=== PATIENT | male | born 1955 | race Hispanic/Latino ===

== ENCOUNTER 2019-04-04 20:09 | Emergency (ER) | payer OTHER ==
[~2019-04-04 20:09] MED LIST: AMLO5TAB9 PO; CETI10TA57 PO; ERGO500014 PO; FOLI1TAB61 PO; FURO40TA5 PO; GLIP5TAB11 PO; LOSA100T58 PO; METO-391 PO; OMEG-138 PO; SITA100T12 PO; SODI325T PO; auryxia PO; zinc PO
[2019-04-04 20:40] LABS: BASOPHILS % (AUTO) 0.3 % (0.0-5.0); EOSINOPHILS % (AUTO) 4.7 % (0.0-8.0); HEMATOCRIT 41.1 % (42-54); LYMPHOCYTES % (AUTO) 16.6 % (21.0-51.0); MEAN CORPUSCULAR HEMOGLOBIN 29.3 pg (27.0-33.0); MEAN CORPUSCULAR HGB CONC 33.3 g/dL (32.0-36.0); MEAN CORPUSCULAR VOLUME 88.1 fL (79-99); MONOCYTES % (AUTO) 8.2 % (3.0-13.0); NEUTROPHILS % (AUTO) 70.2 % (40.0-77.0); PLATELET COUNT (AUTO) 144 K/uL (130-400); RED BLOOD CELL COUNT(AUTO) 4.67 MIL/uL (4.50-6.20); RED CELL DISTRIBUTION WIDTH 15.8 % (11.0-15.5); WHITE BLOOD COUNT (AUTO) 6.3 K/uL (4.8-10.8)
[2019-04-04 20:51] LABS: CREATININE 4.3 mg/dL (0.5-1.5); POTASSIUM 3.7 mmol/L (3.5-5.1)
[2019-04-04 20:52] LABS: INR 1.01 (0.85-1.15); PARTIAL THROMBOPLASTIN TIME 26.6 SEC (26.3-35.5); PROTHROMBIN TIME 10.6 SEC (9.6-11.6)
[2019-04-04 20:59] LABS: ALBUMIN 3.8 g/dL (3.5-5.0); BILIRUBIN,TOTAL 0.6 mg/dL (0.2-1.0); TOTAL PROTEIN, SERUM 7.9 g/dL (6.0-8.3)
== END 2019-04-04 22:27 | disposition home or self-care (01) ==
LOC: EDH 20:09
DX: T82.838A Hemorrhage due to vascular prosthetic devices, implants and grafts, initial encounter (principal); I10 Essential (primary) hypertension; I12.0 Hypertensive chronic kidney disease with stage 5 chronic kidney disease or end stage renal disease; E11.22 Type 2 diabetes mellitus with diabetic chronic kidney disease; N18.6 End stage renal disease; Z88.0 Allergy status to penicillin; Y84.8 Other medical procedures as the cause of abnormal reaction of the patient, or of later complication, without mention of misadventure at the time of the procedure; Y92.89 Other specified places as the place of occurrence of the external cause
CPT/HCPCS: 36415; 80053; 85025; 85610; 85730

== ENCOUNTER 2020-03-20 07:12 | Day surgery (SDC) | payer OTHER ==
[2020-03-18 14:29] LABS: BASOPHILS % (AUTO) 0.7 % (0.0-5.0); EOSINOPHILS % (AUTO) 1.2 % (0.0-8.0); HEMATOCRIT 44.2 % (42-54); LYMPHOCYTES % (AUTO) 15.9 % (21.0-51.0); MEAN CORPUSCULAR HEMOGLOBIN 29.9 pg (27.0-33.0); MEAN CORPUSCULAR HGB CONC 32.6 g/dL (32.0-36.0); MEAN CORPUSCULAR VOLUME 91.9 fL (79-99); MONOCYTES % (AUTO) 7.9 % (3.0-13.0); NEUTROPHILS % (AUTO) 74.1 % (40.0-77.0); PLATELET COUNT (AUTO) 179 K/uL (130-400); RED BLOOD CELL COUNT(AUTO) 4.81 MIL/uL (4.50-6.20); RED CELL DISTRIBUTION WIDTH 13.5 % (11.0-15.5); WHITE BLOOD COUNT (AUTO) 8.6 K/uL (4.8-10.8)
[2020-03-18 14:32] LABS: APPEARANCE,URINE SL CLOUDY (CLEAR); BILIRUBIN,URINE SMALL (NEGATIVE); COLOR,URINE YELLOW (YELLOW); GLUCOSE, URINE (UA) NEGATIVE (NEGATIVE); KETONES,URINE 5 mg/dL (NEGATIVE); LEUKOCYTE ESTERASE ,URINE MODERATE (NEGATIVE); NITRATE,URINE NEGATIVE (NEGATIVE); OCCULT BLOOD,URINE LARGE (NEGATIVE); PROTEIN,URINE >=300 mg/dL (NEGATIVE); UROBILINOGEN,URINE 0.2 mg/dL (0.2-1.0)
[2020-03-18 14:38] LABS: PARTIAL THROMBOPLASTIN TIME 25.7 SEC (26.3-35.5); PROTHROMBIN TIME 10.8 SEC (9.6-11.6)
[2020-03-18 14:54] LABS: POTASSIUM 4.3 mmol/L (3.5-5.1)
[2020-03-18 15:19] LABS: WBC,URINE 26-50 /HPF (0-1)
[2020-03-18 15:20] LABS: CREATININE 9.1 mg/dL (0.5-1.5)
[2020-03-18 15:20] LABS: BACTERIA,URINE Few /HPF (None Seen); SQUAMOUS EPITHELIAL CELL,UR Rare /HPF (0-2)
[2020-03-19 16:29] VITALS: BP 122/59
--- NOTE | 2020-03-19 17:45 | NUR ---
reported urine result to Fabiola Michaels PROFESSIONAL MODEL, and bun 47, cathode washer 9.1, new order for Urine culture , called lab and need to collect new urine for urine culture.
--- NOTE | 2020-03-19 17:49 | NUR ---
Reported chest xray result to Fabiola Michaels BODY CLEANER , no new orders in regards to chest xray.
[~2020-03-20] VITALS: Ht 175.3 cm; Wt 97.5 kg
[2020-03-20] VITALS (7 sets, daily range): BP systolic 91–123; BP diastolic 58–72
[~2020-03-20 07:12] MED LIST changes: +ACET-2247 PO; -AMLO5TAB9 PO; +AROM1FL. PO; +CALC600T15 PO; -CETI10TA57 PO; -ERGO500014 PO; -FOLI1TAB61 PO; -FURO40TA5 PO; -LOSA100T58 PO; -OMEG-138 PO; +OMEG-184 PO; +RIVA15TA PO; -SITA100T12 PO; -SODI325T PO; +SODIUM CHLORIDE 0.9% 500ML 500 ML IV SCH; +l-theanine PO; +vitamin b6 PO; -zinc PO
[2020-03-20] MEDS ORDERED: SODIUM CHLORIDE 0.9% 1000ML 1,000 ML IV ONE (09:22)
[2020-03-20] MEDS ORDERED: METO50TA18 PO (09:27)
[2020-03-20] MEDS ORDERED: MIDAZOLAM HCL 1 MG/ML 2ML VIAL ONE (12:07)
[2020-03-20] MEDS ORDERED: IOHEXOL 350 MG/ML 100ML INFUS..BTL IV ONE (12:07)
[2020-03-20] MEDS ORDERED: NITROGLYCERIN 2 MG/VIAL VIAL IV ONE (12:07)
[2020-03-20] MEDS ORDERED: LIDOCAINE HCL 2% 20ML ONE (12:07)
[2020-03-20] MEDS ORDERED: IOHEXOL-350 50ML VIAL IV ONE (13:01)
[2020-03-20] MEDS ORDERED: GLUCAGON 1MG KIT 1 MG ML IM PRN (13:30)
[2020-03-20] MEDS ORDERED: SODIUM CHLORIDE 0.9% 10 ML VIAL IVP SCH (13:30)
[2020-03-20] MEDS ORDERED: DEXTROSE 50%-WATER 50 ML DISP.SYRIN IV PRN (13:30)
--- NOTE | 2020-03-20 14:30 | NUR ---
RECIEVED REPORT FROM FRANCY TORRES RN USING SBAR AT BEDSIDE. PATIENT AAOX3, RESPIRATIONS UNLABORED, VITAL SIGNS STABLE. DENIES ANY PAIN AT THIS TIME. DRESSING TO RIGHT GROIN DRY/INTACT. AREA SOFT/NONTENDER. PEDAL PULSES PRESENT BILATERALLY. PATIENT IN SUPINE POSITION.
[2020-03-20 14:34] LABS: CHOLESTEROL 89 mg/dL (<200); HDL CHOLESTEROL 69 mg/dL (29-71); LDL DIRECT 54 mg/dL (0-99); TRIGLYCERIDES 64 mg/dL (30-200)
[2020-03-20] MEDS ORDERED: INSULIN HUMULIN R 100 UNIT/ML 3ML SQ SCH (16:30)
--- NOTE | 2020-03-20 17:00 | NUR ---
DISCHARGE INSTRUCTIONS PROVIDED VIA TELEPHONE TO PATIENT'S SISTER (ALEXANDRA LEWIS). FOLLOW UP APPOINTMENT PROVIDED AND PRESCRIPTION PROVIDED WELL. INSTRUCTION TO RESUME [facility] TOMORROW LATE AFTERNOON. ALL QUESTIONS/CONCERNS ADDRESSED.
--- NOTE | 2020-03-20 17:20 | NUR ---
PATIENT DISCHARGED FROM FACILITY VIA WHEELCHAIR BY NURSE. PATIENT ASSISTED INTO PRIVATE VEHICLE DRIVEN BY FAMILY MEMBER.
== END 2020-03-20 17:20 | disposition home or self-care (01) ==
LOC: DAH 07:12
PROVIDERS: ATTEND Internal Medicine Cardiovascular Disease
DX: Z01.810 Encounter for preprocedural cardiovascular examination (principal); I25.10 Atherosclerotic heart disease of native coronary artery without angina pectoris; I48.21 Permanent atrial fibrillation; E11.22 Type 2 diabetes mellitus with diabetic chronic kidney disease; I12.0 Hypertensive chronic kidney disease with stage 5 chronic kidney disease or end stage renal disease; N18.6 End stage renal disease; E78.5 Hyperlipidemia, unspecified; Z94.0 Kidney transplant status; Z88.0 Allergy status to penicillin; Z79.01 Long term (current) use of anticoagulants; Z79.899 Other long term (current) drug therapy; Z98.890 Other specified postprocedural states
CPT/HCPCS: 36415 ×2; 71045; 75630; 80048; 80061; 81001; 82948 ×2; 85025; 85610; 85730; 87088 ×2; 93005; 93458; A4215; A4216; A4221; A4222; A4223 ×3; A4606; A4663; C1760; C1894; J1644; J2250; J3490 ×2; J7030; Q9965 ×2; Q9967; 36200; 99156; 99157

== ENCOUNTER → 2022-03-30 | Outpatient (CLI) | payer OTHER ==
[~2022-03-30] MED LIST changes: +CALC-1125 PO; -CALC600T15 PO; -METO-391 PO; +METO50TA18 PO; -SODIUM CHLORIDE 0.9% 500ML 500 ML IV SCH
== END | disposition home or self-care (01) ==
LOC: RAH 09:58
PROVIDERS: ATTEND Internal Medicine Critical Care Medicine
DX: K80.20 Calculus of gallbladder without cholecystitis without obstruction (principal); K74.60 Unspecified cirrhosis of liver
CPT/HCPCS: 76700

== ENCOUNTER → 2024-06-18 | Outpatient (CLI) | payer OTHER ==
[~2024-06-18] MED LIST changes: -GLIP5TAB11 PO; +GLIP5TAB15 PO
[2024-06-18 13:00] LABS: INR 2.16 (0.85-1.15); PROTHROMBIN TIME 22.4 SEC (9.6-11.6)
== END | disposition home or self-care (01) ==
LOC: LAB 10:00
PROVIDERS: ATTEND Internal Medicine Cardiovascular Disease
DX: I48.91 Unspecified atrial fibrillation (principal); Z79.01 Long term (current) use of anticoagulants
CPT/HCPCS: 36415; 85610